=== PATIENT | male | born 2000 | race Asian ===

== ENCOUNTER 2019-04-16 16:28 | Emergency (ER) | payer OTHER ==
[~2019-04-16] VITALS: Ht 180.3 cm; Wt 60.0 kg
--- NOTE | 2019-04-16 16:38 | NUR ---
NA X 1
--- NOTE | 2019-04-16 17:16 | NUR ---
WHILE CHARTING CLINICAL SCREEN, PATIENT STATES HE HAS SI WITH A PLAN IN PLACE WITHOUT INTENTION TO ACT ON PLAN. MD NOTIFIED.
--- NOTE | 2019-04-16 17:20 | NUR ---
THIS IS A 18 YO MALE COMING IN FOR "EXTREME DIARRHEA AND ABDOMINAL PAIN" FOR THE PAST FEW DAYS. PATIENT HAS HX OF "GASTROENTOLOGICAL ISSUES". PATIENT STATES HE HAS HAD ULTRASOUNDS, BLOODWORK, IMAGING DONE IN THE PAST, AND "I'VE TRIED ALL KINDS OF DIETS TO HELP". PATIENT STATES HIS ABDOMINAL PAIN IS 7/10 AND "VARIES THROUGHOUT THE DAY". PATIENT APPEARS ANXIOUS. PATIENT PLACED ON TRANSPORT AIRCREWMAN DUE TO INCREASED HEART RATE, 112 BPM IN SINUS TACHYCARDIA AT THIS TIME. PLACED ON CONTINUOUS SPO2 AT 97%, CYCLE BP Q1HR. DENIES FURTHER NEEDS AT THIS TIME.
[2019-04-16] MEDS ORDERED: DICYCLOMINE 10 MG/ML, 2ML ONE (17:26)
[2019-04-16] MEDS ORDERED: DICYCLOMINE 10 MG/ML, 2ML IM ONE (17:30)
--- NOTE | 2019-04-16 17:34 | NUR ---
PATIENT MEDICATED PER EMAR, WAS ANXIOUS ABOUT NEEDLES, HOWEVER PATIENT TOLERATED IM INJECTION WELL. DENIES FURTHER NEEDS AT THIS TIME.
[2019-04-16 17:37] LABS: BASOPHILS # (AUTO) 0.02 x10^3/uL (0-0.3); BASOPHILS % (AUTO) 0 % (0-1); EOSINOPHILS # (AUTO) 0.03 x10^3/uL (0-0.8); EOSINOPHILS % (AUTO) 0 % (1-7); LYMPHOCYTES # (AUTO) 0.77 x10^3/uL (1-6.1); LYMPHOCYTES % (AUTO) 9 % (22-44); MD NO; MEAN CORPUSCULAR HEMOGLOBIN 31.9 pg (27.5-34.5); MEAN CORPUSCULAR HGB CONC 33.2 g/dL (33.2-36.2); MEAN CORPUSCULAR VOLUME 96.2 fL (81-97); MEAN PLATELET VOLUME 7.5 fL (7.4-10.4); MONOCYTES # (AUTO) 0.49 x10^3/uL (0-1.4); MONOCYTES % (AUTO) 6 % (2-9); NEUTROPHILS # (AUTO) 6.85 x10^3/uL (1.8-8.0); NEUTROPHILS % (AUTO) 84 % (42-75); PLATELET COUNT 255 x10^3/uL (130-400); RED BLOOD COUNT 5.15 x10^6/uL (4.38-5.82); RED CELL DISTRIBUTION WIDTH 12.6 % (9.4-14.8)
[2019-04-16 17:50] LABS: ALANINE AMINOTRANSFERASE 29 U/L (12-78); ALBUMIN 4.2 g/dL (3.4-5.0); ANION GAP 7 mmol/L (5-15); CHLORIDE 105 mmol/L (98-107); CREATININE 0.92 mg/dL (0.7-1.3)
[2019-04-16 17:52] LABS: ALKALINE PHOSPHATASE 100 U/L (45-117); BILIRUBIN,TOTAL 0.7 mg/dL (0.2-1.0); TOTAL PROTEIN 8.2 g/dL (6.4-8.2)
--- NOTE | 2019-04-16 17:56 | NUR ---
PIV ESTABLISHED FOR CT.
--- NOTE | 2019-04-16 17:59 | NUR ---
PT AWARE OF NEED FOR UA SAMPLE. PT UNWILLING TO TRY TO VOID AT THIS TIME.
[2019-04-16 18:30] VITALS: BP 125/77
--- NOTE | 2019-04-16 18:32 | NUR ---
PT UP SELF WITH STEADY GAIT TO RR TO RPOVIDE UA SAMPLE.
[2019-04-16 18:49] LABS: MICROSCOPIC NOT IND
[2019-04-16 18:53] LABS: CULTURE INDICATED? NO
--- NOTE | 2019-04-16 19:05 | NUR ---
PT TO CT.
[2019-04-16] MEDS ORDERED: OMNIPAQUE 350 MG/ML, 100ML BOTTLE ONE (19:20)
--- NOTE | 2019-04-16 19:26 | NUR ---
PT BACK FROM CT.
== END 2019-04-16 20:01 | disposition home or self-care (01) ==
LOC: ED 19:30
DX: R10.84 Generalized abdominal pain (principal); R19.7 Diarrhea, unspecified
CPT/HCPCS: 36415; 74177; 80053; 81003; 83690; 85025; 96372; 99284; J0500; Q9967